=== PATIENT | male | born 1935 | race Caucasian/White ===

== ENCOUNTER → 2017-02-15 | Outpatient (CLI) | payer MEDICARE, OTHER ==
[~2017-02-15] MED LIST: ADULT LOW DOSE81 MG PO; ALPRAZOLAM0.5 MG PO; FLONASE 0.05% N16 GM; LOTENSIN TAB 1010 MG PO; METOPROLOL TART25 MG PO; MULTIVITAMINS1 EAC2 PO; NITROSTAT 0.40.4 MG SL; NORVASC 5 MG TAB5 MG PO; PLAVIX 75 MG TA75 MG PO; PROSCAR5 MG PO; PROTONIX40 MG PO; SIMVASTATIN20 MG PO; SYNTHROID50 MCG PO; VITAMIN D 11000 UNIT PO
== END ==
LOC: EXRD 08:32
DX: R07.9 Chest pain, unspecified (principal); Z92.89 Personal history of other medical treatment
CPT/HCPCS: 71020

== ENCOUNTER 2021-10-29 20:06 | Inpatient (IN) | payer MEDICARE, OTHER ==
[~2021-10-29] VITALS: Ht 172.7 cm; Wt 65.8 kg
[2021-10-29 21:08] LABS: HEMOGLOBIN 11.1 gm/dl (14.0-17.5); RED BLOOD COUNT 3.89 M/UL (4.20-5.50); WHITE BLOOD COUNT 5.1 K/UL (4.5-11.0)
[2021-10-29 21:34] LABS: BUN/CREATININE RATIO 14 (0-10)
[2021-10-30 09:13] LABS: HEMOGLOBIN 10.1 gm/dl (14.0-17.5); WHITE BLOOD COUNT 4.6 K/UL (4.5-11.0)
[2021-10-30 09:17] LABS: RED BLOOD COUNT 3.48 M/UL (4.20-5.50)
[2021-10-30] MEDS ORDERED: SPIRONOLACTONE25 MG PO (11:14)
[2021-10-30] MEDS ORDERED: ATORVASTATIN CA40 MG PO (11:14)
[2021-10-30 17:13] LABS: ACINETOBACTER BAUMANNII Not Detected (Negative); CANDIDA ALBICANS Not Detected (Negative); CANDIDA KRUSEI Not Detected (Negative); CANDIDA TROPICALIS Not Detected (Negative); ENTEROCOCCUS Not Detected (Negative); ESCHERICHIA COLI Not Detected (Negative); HAEMOPHILUS INFLUENZAE Not Detected (Negative); KLEBSIELLA OXYTOCA Not Detected (Negative); KLEBSIELLA PNEUMONIAE Not Detected (Negative); KPC-CARBAPENEM-RESISTANCE GENE Not Detected (Negative); PROTEUS Not Detected (Negative); PSEUDOMONAS AERUGINOSA Not Detected (Negative); SERRATIA MARCESANS Not Detected (Negative); STAPHYLOCOCCUS AUREUS Not Detected (Negative); STREP AGALACTIAE (GROUP B) Not Detected (Negative); STREP PYOGENES (GROUP A) Not Detected (Negative); STREPTOCOCCUS Not Detected (Negative); mecA (METHICILLIN RESIST GENE Not Detected (Negative); vanA/B (VANCOMYCIN RESIST GENE Not Detected (Negative)
[2021-10-30 19:22] LABS: STAPHYLOCOCCUS DETECTED (Negative)
[2021-10-31 07:04] LABS: HEMOGLOBIN 12.7 gm/dl (14.0-17.5); WHITE BLOOD COUNT 5.2 K/UL (4.5-11.0)
[2021-10-31 07:21] LABS: BUN/CREATININE RATIO 18 (0-10); RED BLOOD COUNT 4.41 M/UL (4.20-5.50)
[2021-11-01 06:57] LABS: HEMOGLOBIN 12.6 gm/dl (14.0-17.5); RED BLOOD COUNT 4.4 M/UL (4.20-5.50); WHITE BLOOD COUNT 4.2 K/UL (4.5-11.0)
[2021-11-01 07:18] LABS: BUN/CREATININE RATIO 24 (0-10)
[2021-11-02 06:57] LABS: HEMOGLOBIN 11.6 gm/dl (14.0-17.5); RED BLOOD COUNT 3.99 M/UL (4.20-5.50); WHITE BLOOD COUNT 9.2 K/UL (4.5-11.0)
[2021-11-02 07:14] LABS: BUN/CREATININE RATIO 31 (0-10)
[2021-11-03 08:49] LABS: HEMOGLOBIN 12.1 gm/dl (14.0-17.5); RED BLOOD COUNT 4.18 M/UL (4.20-5.50)
[2021-11-03 08:51] LABS: WHITE BLOOD COUNT 12.2 K/UL (4.5-11.0)
[2021-11-03 09:29] LABS: BUN/CREATININE RATIO 39 (0-10)
[2021-11-04 07:01] LABS: HEMOGLOBIN 11.9 gm/dl (14.0-17.5); RED BLOOD COUNT 4.18 M/UL (4.20-5.50)
[2021-11-04 07:49] LABS: BUN/CREATININE RATIO 49 (0-10)
[2021-11-04] MEDS ORDERED: LOPRESSOR 25 MG25 MG PO (11:36)
[2021-11-04] MEDS ORDERED: TAB-A-VITE TA400 MC1 PO (11:36)
[2021-11-04] MEDS ORDERED: PROTONIX 40 MG40 M1 PO (11:36)
[2021-11-04] MEDS ORDERED: FLONASE 0.05% N16 GM (11:36)
[2021-11-04] MEDS ORDERED: CLOPIDOGREL75 MG PO (11:36)
[2021-11-04] MEDS ORDERED: FINASTERIDE5 MG PO (11:36)
[2021-11-04] MEDS ORDERED: FERROUS SULFAT325 M2 PO (11:36)
[2021-11-04] MEDS ORDERED: VITAMIN D325 MCG PO (11:36)
[2021-11-04] MEDS ORDERED: DEXAMETHASONE 44 MG PO (11:36)
[2021-11-04] MEDS ORDERED: ALPRAZOLAM0.5 MG PO (11:36)
[2021-11-04] MEDS ORDERED: LEVOTHYROXINE50 MCG PO (11:36)
== END 2021-11-04 18:24 | DRG 177 ==
LOC: ER1 20:06 → CDU 22:24 → MED SURG 4 10-30 16:07
PROVIDERS: Emergency Medicine; ADMIT Internal Medicine
PROC: 8E0ZXY6 Isolation (ICD-10-PCS; principal; 2021-10-31)
PROC: XW033E5 Introduction of Remdesivir Anti-infective into Peripheral Vein, Percutaneous Approach, New Technology Group 5 (ICD-10-PCS; 2021-10-31)
PROC: 3E0333Z Introduction of Anti-inflammatory into Peripheral Vein, Percutaneous Approach (ICD-10-PCS; 2021-10-31)
DX: U07.1 COVID-19 (principal); J12.82 Pneumonia due to coronavirus disease 2019; N17.9 Acute kidney failure, unspecified; K92.2 Gastrointestinal hemorrhage, unspecified; I10 Essential (primary) hypertension; E78.5 Hyperlipidemia, unspecified; I48.91 Unspecified atrial fibrillation; I25.10 Atherosclerotic heart disease of native coronary artery without angina pectoris; I49.5 Sick sinus syndrome; R55 Syncope and collapse; N40.0 Benign prostatic hyperplasia without lower urinary tract symptoms; D50.9 Iron deficiency anemia, unspecified; F03.90 Unspecified dementia, unspecified severity, without behavioral disturbance, psychotic disturbance, mood disturbance, and anxiety; B95.61 Methicillin susceptible Staphylococcus aureus infection as the cause of diseases classified elsewhere; L89.151 Pressure ulcer of sacral region, stage 1; E87.6 Hypokalemia; G40.909 Epilepsy, unspecified, not intractable, without status epilepticus; K21.9 Gastro-esophageal reflux disease without esophagitis; I48.0 Paroxysmal atrial fibrillation; Z95.1 Presence of aortocoronary bypass graft; Z95.0 Presence of cardiac pacemaker; Z86.73 Personal history of transient ischemic attack (TIA), and cerebral infarction without residual deficits; Z79.899 Other long term (current) drug therapy; Z79.82 Long term (current) use of aspirin; Z88.8 Allergy status to other drugs, medicaments and biological substances; Z88.5 Allergy status to narcotic agent
CPT/HCPCS: ECHO; 36415; 36600; 51701; 70450; 71045; 80048; 80053; 80307; 82140; 82550; 82553; 82803; 82962; 83540; 83550; 83605; 83690; 83735; 83874; 83880; 84100; 84439; 84443; 84484; 85018; 85025; 85027; 85610; 85730; 86140; 86850; 86900; 86901; 87040; 87077; 87150; 87186; 93005; 93306; 93880; 96374; 99285; A6212; G0378; G0480; J0690; J0696; J3370; J7030; J7070; U0002